=== PATIENT | male | born 1960 | race Caucasian/White ===

== ENCOUNTER → 2017-01-17 | Outpatient (CLI) | payer MEDICARE, OTHER ==
[~2017-01-17] MED LIST: CLCX200C PO; CYCL10TA9; GBPN300C PO; PRD20T PO; RNT150T PO; SULF1TAB38 PO; TRAM50TA2
--- NOTE | 2017-01-17 15:27 | Diagnostic Imaging Report ---
INDICATION: Bilateral knee pain. TECHNIQUE: Three views of the bilateral knees. CORRELATION STUDY: None FINDINGS: The joint spaces are maintained. The articular surfaces are smooth and preserved. There is no acute bony abnormality. There is mild chondrocalcinosis bilaterally involving both medial and lateral compartments. Minimal spur-like formation superior aspect of patella. IMPRESSION: 1. Negative for acute bony abnormality of the knee. Mild degenerative changes suggested. Dictated by: Dictated on workstation # [id number]
== END ==
LOC: RAD 10:01
PROVIDERS: ATTEND Family Medicine
DX: M25.561 Pain in right knee (principal); M25.562 Pain in left knee

== ENCOUNTER 2017-01-22 13:15 | Outpatient (RCR) | payer MEDICARE, OTHER | END 2017-01-24 | disposition home or self-care (01) | PROVIDERS: ATTEND Family Medicine | DX: M51.16 Intervertebral disc disorders with radiculopathy, lumbar region (principal) ==

== ENCOUNTER → 2017-01-23 | Outpatient (CLI) | payer MEDICARE, OTHER | LOC: RAD 08:38 | PROVIDERS: ATTEND Family Medicine | DX: M54.5 Low back pain (principal); Z53.29 Procedure and treatment not carried out because of patient's decision for other reasons ==

== ENCOUNTER 2017-02-09 13:15 | Outpatient (RCR) | payer MEDICARE, OTHER ==
[2017-02-10] MEDS ORDERED: PREG75CA PO (12:49)
[2017-02-10] MEDS ORDERED: CYCL10TA9 PO (12:49)
[2017-02-10] MEDS ORDERED: GABA600T2 PO (12:49)
[2017-02-10] MEDS ORDERED: PANT40TA3 PO (12:50)
== END 2017-02-23 09:39 | disposition home or self-care (01) ==
PROVIDERS: ATTEND Family Medicine
DX: M51.16 Intervertebral disc disorders with radiculopathy, lumbar region (principal)

== ENCOUNTER 2017-02-10 05:38 | Outpatient (CLI) | payer MEDICARE ==
[~2017-02-10] VITALS: Ht 172.7 cm; Wt 59.0 kg
[2017-02-10] MEDS ORDERED: GABA600T2 PO (12:49)
[2017-02-10] MEDS ORDERED: PREG75CA PO (12:49)
[2017-02-10] MEDS ORDERED: CYCL10TA9 PO (12:49)
[2017-02-10] MEDS ORDERED: PANT40TA3 PO (12:50)
== END 2017-02-10 12:51 ==
LOC: PREOP 05:38
PROVIDERS: ATTEND Surgery
DX: Z01.818 Encounter for other preprocedural examination (principal); Z80.0 Family history of malignant neoplasm of digestive organs

== ENCOUNTER 2017-02-13 12:36 | Day surgery (SDC) | payer MEDICARE, OTHER ==
[~2017-02-13] VITALS: Ht 167.6 cm; Wt 59.0 kg
[~2017-02-13 12:36] MED LIST changes: +CYCL10TA9 PO; +GABA600T2 PO; +PANT40TA3 PO; +PREG75CA PO
[2017-02-13] MEDS ORDERED: NS IV 1000 ML 1,000 ML ONE (12:37)
--- OUTSIDE RECORDS SUMMARY | 2017-02-13 12:39 | XMS REPORT | Continuity of Care Document ---
Author Author [facility] Organization [facility] Address Unknown Phone Unavailable Allergies Active Description Code Type Severity Reaction Onset Reported/Identified Relationship to Patient Clinical Status Yes aspirin [id number] Drug Allergy Severe ANAPHYLAXIS 03/30/2009 Yes EGGS EGGS Mild N/A 03/30/2009 Medications Problems Date Dx Coded Attending Type Code Diagnosis Diagnosed By 12/12/2012 TAQUERIA CARCAMO Ot 726.33 OLECRANON BURSITIS 12/12/2012 TAQUERIA CARCAMO Ot 913.4 INSECT BITE FOREARM 12/12/2012 TAQUERIA CARCAMO Ot E000.8 OTHER EXTERNAL CAUSE STATUS 12/12/2012 TAQUERIA CARCAMO Ot E906.4 NONVENOM ARTHROPOD BITE 01/08/2017 JACQUELINE RODRÍGUEZ MD Ot M51.16 INTERVERTEBRAL DISC DISORDERS W RADICULO 01/09/2017 JACQUELINE RODRÍGUEZ MD, Ot M51.16 INTERVERTEBRAL DISC DISORDERS W RADICULO 01/09/2017 JACQUELINE RODRÍGUEZ MD, Ot M51.16 INTERVERTEBRAL DISC DISORDERS W RADICULO 01/12/2017 JACQUELINE RODRÍGUEZ MD, Ot M51.16 INTERVERTEBRAL DISC DISORDERS W RADICULO 01/19/2017 JACQUELINE RODRÍGUEZ MD, Ot M51.16 INTERVERTEBRAL DISC DISORDERS W RADICULO 01/23/2017 JACQUELINE RODRÍGUEZ MD, Ot M51.16 INTERVERTEBRAL DISC DISORDERS W RADICULO Procedures Results Encounters ACCT No. Visit Date/Time Discharge Status Pt. Type Provider Facility Loc./Unit Complaint [id number] 01/25/2017 03:33:00 2016 23:59:59 CLS Preadmit JACQUELINE RODRÍGUEZ MD [facility] REHAB LUMBAR DDD WITH RADICULOPATHY [id number] 01/22/2017 13:15:00 2016 00:01:00 DIS Outpatient JACQUELINE RODRÍGUEZ MD [facility] REHAB LUMBAR DDD WITH RADICULOPATHY [id number] 01/23/2017 08:38:00 2016 23:59:59 CLS Outpatient JACQUELINE RODRÍGUEZ MD [facility] RAD CHRONIC LBP [id number] 01/17/2017 10:01:00 2016 23:59:59 CLS Outpatient JACQUELINE RODRÍGUEZ MD [facility] RAD CHRONIC LBP W DDD [id number] 12/12/2012 11:02:00 2012 12:10:00 DIS Emergency TAQUERIA CARCAMO [facility] ER SPIDER BITE
[2017-02-13 13:27] LABS: BASOPHILS % (AUTO) 1 % (0-10); EOSINOPHILS # (AUTO) 0.1 10^3/uL (0.0-0.3); EOSINOPHILS % (AUTO) 2 % (0-10); LYMPHOCYTES # (AUTO) 1.4 X 10^3 (1.0-4.0); LYMPHOCYTES % (AUTO) 34 % (12-44); MEAN CORPUSCULAR HEMOGLOBIN 29 PG (25-34); MEAN CORPUSCULAR HGB CONC 33 G/DL (32-36); MEAN CORPUSCULAR VOLUME 89 FL (80-99); MEAN PLATELET VOLUME 9.3 FL (7.4-10.4); MONOCYTES # (AUTO) 0.4 X 10^3 (0.0-1.0); MONOCYTES % (AUTO) 8 % (0-12); NEUTROPHILS # (AUTO) 2.3 X 10^3 (1.8-7.8); NEUTROPHILS % (AUTO) 55 % (42-75); PLATELET COUNT 185 10^3/uL (130-400); RED BLOOD COUNT 5.11 10^6/uL (4.35-5.85); RED CELL DISTRIBUTION WIDTH 12.5 % (10.0-14.5); WHITE BLOOD COUNT 4.2 10^3/uL (4.3-11.0)
[2017-02-13 13:30] VITALS: BP 155/100
[2017-02-13] MEDS ORDERED: NS IV 1000 ML 1,000 ML IV STA (13:30)
[2017-02-13 13:40] LABS: PROTHROMBIN TIME PATIENT 12.8 SEC (12.2-14.7)
--- NOTE | 2017-02-13 13:43 | Progress Note-Pre Operative ---
Pre-Operative Progress Note H&P Reviewed The H&P was reviewed, patient examined and no changes noted. Date Seen by Provider: Feb 13, 2017 Date H&P Reviewed: Feb 13, 2017 Time H&P Reviewed: 01:42 Pre-Operative Diagnosis: family history of colon cancer KARTIK THORNTON DO Feb 13, 2017 13:42
[2017-02-13 13:55] LABS: ALANINE AMINOTRANSFERASE 15 U/L (0-55); ALBUMIN 4.3 GM/DL (3.2-4.5); ANION GAP 10 MMOL/L (5-14); ASPARTATE AMINO TRANSFERASE 13 U/L (5-34); BILIRUBIN,TOTAL 2.6 MG/DL (0.1-1.0); BLOOD UREA NITROGEN 7 MG/DL (7-18); BUN/CREATININE RATIO 8; CALCIUM 9.8 MG/DL (8.5-10.1); CARBON DIOXIDE 26 MMOL/L (21-32); CHLORIDE 104 MMOL/L (98-107); GFR ESTIMATED > 60; GLUCOSE 86 MG/DL (70-105); POTASSIUM 3.7 MMOL/L (3.6-5.0); SODIUM 140 MMOL/L (135-145)
[2017-02-13] MEDS ORDERED: MIDAZOLAM 5 MG/5 ML (VERSED) VIAL ONE (13:58)
[2017-02-13] MEDS ORDERED: fentaNYL INJECTION 250 MCG/5 ML AMP ONE (13:58)
[2017-02-13 14:55] VITALS: BP 112/88
[2017-02-13 15:20] VITALS: BP 123/78
[2017-02-13 15:46] VITALS: BP 123/78
--- NOTE | 2017-02-17 10:47 | OPERATIVE REPORT ---
DATE OF SERVICE: PREOPERATIVE DIAGNOSIS: Family history of colon cancer. POSTOPERATIVE DIAGNOSIS: Normal colonoscopy. SURGEON: David Thornton D.O. ANESTHESIA: Conscious sedation. PROCEDURE: Colonoscopy. INDICATION FOR PROCEDURE: The patient is a 56-year-old male, who came to the office for evaluation of colonoscopy. He has a family history of colon cancer. He has no issues at the present time. Case was discussed with the patient. Informed consent was obtained for procedure. DESCRIPTION OF OPERATIVE PROCEDURE: The patient was placed in lateral decubitus position. Scope was introduced into the rectum after digital rectal examination, which was normal. The scope was then proceeded all the way to the cecum with minimal difficulty. The bowel was prepped well. There were no abnormalities seen upon withdrawal of scope. The scope was then withdrawn from the rectum. There were no complications. IMPRESSION: Normal colonoscopy. RECOMMENDATIONS: Repeat colonoscopy in 5 years since the patient has a family history of colon cancer. Job ID: [id number] DocumentID: [id number] Dictated Date: 02/16/2017 15:34:14 Clinical Partner Date: 02/17/2017 02:09:37 Dictated By: DAVID THORNTON DO
== END 2017-02-13 15:35 | disposition home or self-care (01) ==
LOC: ENDO 12:36
PROVIDERS: ATTEND Surgery
DX: Z12.11 Encounter for screening for malignant neoplasm of colon (principal); Z80.0 Family history of malignant neoplasm of digestive organs; K21.9 Gastro-esophageal reflux disease without esophagitis; M17.9 Osteoarthritis of knee, unspecified; M54.5 Low back pain; F70 Mild intellectual disabilities; Z79.899 Other long term (current) drug therapy
CPT/HCPCS: 36415; 80053; 85025; 85610

== ENCOUNTER → 2017-04-03 | Outpatient (CLI) | payer MEDICARE, OTHER ==
--- NOTE | 2017-04-03 14:38 | Diagnostic Imaging Report ---
PROCEDURE: MR imaging cervical spine without contrast. TECHNIQUE: Multiplanar, multisequence MR imaging of the cervical spine was performed without contrast. INDICATION: Neck pain. FINDINGS: Sagittal images show good alignment of vertebral bodies. Body height is well maintained throughout. The atlantoaxial joint is in good alignment. Marrow signal is normal throughout. C3-C4: There is central disc herniation which is causing mild midline ventral extradural defect. Minimal AP central canal dimension is approximately 7 mm. There does not appear to be significant encroachment upon the lateral recess. C4-C5. There is loss of disc space height. Hypertrophic endplate changes are seen along the uncovertebral joint both on the right and left. There is subcortical cystic change noted on the left within the vertebral body. This is causing svoe-hz-hicuonac encroachment upon the neural foramen more severe on the right. No central canal stenosis is seen. C5-C6: Disc space height appears normal. No evidence of disc herniation. No hypertrophic bony changes. C6-C7: There is a small central radial tear. This is not causing encroachment upon the cord. Cervical cord shows normal signal throughout. Cord is uniform in appearance. The surrounding soft tissues appear normal. IMPRESSION: 1. Multilevel degenerative disc disease with central disc herniation L3-L4 causing mild midline ventral extradural compression upon the cord. 2. There are moderate degenerative changes with hypertrophic bony endplate changes noted C4-C5 and C6-C7 as described above. Dictated by: Dictated on workstation # [id number]
== END ==
LOC: RAD 13:08
PROVIDERS: ATTEND Neurological Surgery
DX: M48.02 Spinal stenosis, cervical region (principal); M47.22 Other spondylosis with radiculopathy, cervical region; M50.11 Cervical disc disorder with radiculopathy, high cervical region; M89.38 Hypertrophy of bone, other site
CPT/HCPCS: 72141

== ENCOUNTER → 2022-08-27 | Outpatient (CLI) | payer MEDICARE ==
[~2022-08-27] MED LIST changes: +CYCL10TA25 PO; -CYCL10TA9 PO; -GABA600T2 PO; +GBPN600T PO; -PANT40TA3 PO; +PANT40TA52 PO
--- NOTE | 2022-08-27 16:48 | Diagnostic Imaging Report ---
PROCEDURE: US Hepatic (Liver). TECHNIQUE: Multiple real-time grayscale images were obtained over the right upper quadrant in various projections. INDICATION: Elevated liver function test. Liver is normal in size at 15 cm. Portal vein is patent and shows normal direction of flow. No liver mass is detected. Gallbladder is without stones or sludge. There is no wall thickening or biliary duct dilatation. Pancreas unremarkable. Aorta is nonaneurysmal. IVC is patent. Right kidney is without calculi or hydronephrosis. There is no ascites. IMPRESSION: Unremarkable right upper quadrant ultrasound. Dictated by: Dictated on workstation # [id number]
== END ==
LOC: RAD 09:01
PROVIDERS: ATTEND Family Medicine
DX: R94.5 Abnormal results of liver function studies (principal)
CPT/HCPCS: 76705